=== PATIENT | female | born 1975 | race Caucasian/White ===

== ENCOUNTER 2017-02-28 13:40 | Emergency (ER) | payer OTHER ==
[2017-02-28] MEDS ORDERED: SODIUM CHLORIDE 0.9% 1,000 ML IV ONE (14:29)
[2017-02-28] MEDS ORDERED: HYDROmorphone 1 MG/ML 1 ML SYRINGE IVP STA ×2 (14:29→18:09)
--- NOTE | 2017-02-28 14:34 | ED ---
General Adult HPI - General Chief complaint: Recheck/Abnormal Lab/Rx Stated complaint: Med refill Time Seen by Provider: 02/28/17 13:57 Source: patient, RN notes reviewed Mode of arrival: ambulatory Limitations: no limitations - History of Present Illness Initial comments: Patient is a 41-year-old female since emergency room for evaluation. Patient states she is from [place]. Patient states she moved here month ago. Patient states she has not established a primary care provider yet. Patient states she has rheumatoid arthritis, diabetes and hypertension. Patient states she takes oxycodone for her rheumatoid arthritis. Patient states that she ran out of her pain medications. Patient states she's been trying to make her pain medications last throughout the past month. Patient states that she doesn't take her pain medications she drinks alcohol instead to help the pain. Patient states she ran out of pain medications yesterday. Patient also states today she 's been developing right upper quadrant pain. Patient states she has been worked up before and they told her that her liver was inflamed. Patient states she was nauseous earlier. Patient denies any nausea currently. Patient states she hasn't taken her blood pressure medications in 3 days. Patient states that a dull constant pain in her right upper quadrant. Patient denies pain or burning during urination, trouble urinating or blood in urine. Patient denies history of abdominal surgeries. Patient denies chest pain or shortness of breath. Patient denies fevers or chills. - Related Data Home Medications Medication Instructions Recorded Confirmed Halobetasol Propionate [Ultravate] 1 applic TOPICAL BID 02/28/17 02/28/17 INSULIN LISPRO (humaLOG) [HumaLOG] See Protocol SQ AC-TID 02/28/17 02/28/17 Insulin Glargine [Lantus] 50 unit SQ HS 02/28/17 02/28/17 Lisinopril 20 mg PO DAILY 02/28/17 02/28/17 Omeprazole 20 mg PO BID 02/28/17 02/28/17 Venlafaxine HCl ER [Effexor XR] 150 mg PO DAILY 02/28/17 02/28/17 clonazePAM [KlonoPIN] 0.5 mg PO TID PRN 02/28/17 02/28/17 metFORMIN HCL 1,000 mg PO BID 06/22/17 06/22/17 oxyCODONE HCL [Oxyir] 10 mg PO Q8H PRN 02/28/17 02/28/17 Previous Rx's Medication Instructions Recorded HYDROcodone/APAP 5-325MG [[facility] 1 tab PO Q6HR PRN #20 tab 02/28/17 5-325] Lisinopril 20 mg PO DAILY #60 tab 02/28/17 Allergies Allergy/AdvReac Type Severity Reaction Status Date / Time Penicillins Allergy Unknown Verified 02/28/17 14:37 Review of Systems ROS Statement: Those systems with pertinent positive or pertinent negative responses have been documented in the HPI. ROS Other: All systems not noted in ROS Statement are negative. Past Medical History Past Medical History: Diabetes Mellitus, Hypertension, Osteoarthritis (OA) History of Any Multi-Drug Resistant Organisms: None Reported Past Psychological History: Anxiety, Depression Smoking Status: Current some day smoker Past Alcohol Use History: Heavy Past Drug Use History: None Reported General Exam - General Exam Comments Initial Comments: Laying in exam room, slightly anxious. Limitations: no limitations General appearance: alert Head exam: Present: atraumatic, normocephalic, normal inspection Eye exam: Present: normal appearance ENT exam: Present: normal exam Neck exam: Present: normal inspection Respiratory exam: Present: normal lung sounds bilaterally. Absent: respiratory distress Cardiovascular Exam: Present: normal rhythm, tachycardia, normal heart sounds Extremities exam: Present: normal inspection Back exam: Present: normal inspection Neurological exam: Present: alert, oriented X3, CN II-XII intact, normal gait Psychiatric exam: Present: normal affect, normal mood Skin exam: Present: warm, dry, intact, normal color. Absent: rash Course Vital Signs 02/28/17 02/28/17 02/28/17 13:43 14:50 17:20 Temperature 98.2 F Pulse Rate 122 H 114 H 99 Respiratory 20 16 16 Rate Blood Pressure 158/92 157/92 147/60 O2 Sat by Pulse 98 96 96 Oximetry 02/28/17 18:23 Temperature 98.4 F Pulse Rate 93 Respiratory 16 Rate Blood Pressure 151/90 O2 Sat by Pulse 96 Oximetry Medical Decision Making - Medical Decision Making patient is a 41-year-old female presents emergency room for evaluation of all over body pain from rheumatoid arthritis and upper quadrant pain. Patient also requesting for medication refill. Patient requesting to have her blood pressure medications refilled and her pain medications. Discussed with patient and would not fill her oxycodone. Patient was sent home with [facility] and lisinopril. Patient states she has enough insulin. Patient states she will establish primary care provider to follow-up with. Patient's liver enzymes elevated. Ultrasound significant for fatty infiltrates liver. Results discussed with patient. Patient states she understands and knows discussed with her. Return parameters discussed. Case discussed Dr. Gusman. - Lab Data Result diagrams: 02/28/17 14:52 02/28/17 14:52 Lab Results 02/28/17 02/28/17 02/28/17 Range/Units 14:52 14:52 15:19 WBC 7.4 (3.8-10.6) k/uL RBC 4.60 (3.80-5.40) m/uL Hgb 15.5 (11.4-16.0) gm/dL Hct 43.4 (34.0-46.0) % MCV 94.5 (80.0-100.0) fL MCH 33.6 (25.0-35.0) pg MCHC 35.6 (31.0-37.0) g/dL RDW 14.5 (11.5-15.5) % Plt Count 234 (150-450) k/uL Neutrophils % 64 % Lymphocytes % 28 % Monocytes % 4 % Eosinophils % 1 % Basophils % 0 % Neutrophils # 4.8 (1.3-7.7) k/uL Lymphocytes # 2.1 (1.0-4.8) k/uL Monocytes # 0.3 (0-1.0) k/uL Eosinophils # 0.1 (0-0.7) k/uL Basophils # 0.0 (0-0.2) k/uL Sodium 137 (137-145) mmol/L Potassium 4.6 (3.5-5.1) mmol/L Chloride 103 (98-107) mmol/L Carbon Dioxide 21 L (22-30) mmol/L Anion Gap 13 mmol/L BUN 12 (7-17) mg/dL Creatinine 0.60 (0.52-1.04) mg/dL Est GFR (MDRD) Af Amer >60 (>60 ml/min/1.73 sqM) Est GFR (MDRD) Non-Af >60 (>60 ml/min/1.73 sqM) Glucose 200 H (74-99) mg/dL POC Glucose (mg/dL) 159 H (75-99) mg/dL POC Glu [place] ID Jody Metz Calcium 9.9 (8.4-10.2) mg/dL Total Bilirubin 0.7 (0.2-1.3) mg/dL AST 91 H (14-36) U/L ALT 109 H (9-52) U/L Alkaline Phosphatase 103 (38-126) U/L Total Protein 7.3 (6.3-8.2) g/dL Albumin 4.4 (3.5-5.0) g/dL Amylase 39 (30-110) U/L Lipase 66 (23-300) U/L Urine Color Urine Appearance (Clear) Urine pH (5.0-8.0) Ur Specific [place] (1.001-1.035) Urine Protein (Negative) Urine Glucose (UA) (Negative) Urine Ketones (Negative) Urine Blood (Negative) Urine Nitrite (Negative) Urine Bilirubin (Negative) Urine Urobilinogen (<2.0) mg/dL Ur Leukocyte Esterase (Negative) Urine HCG, Qual (Not Detectd) Serum Alcohol <10 mg/dL 02/28/17 02/28/17 Range/Units 15:39 15:39 WBC (3.8-10.6) k/uL RBC (3.80-5.40) m/uL Hgb (11.4-16.0) gm/dL Hct (34.0-46.0) % MCV (80.0-100.0) fL MCH (25.0-35.0) pg MCHC (31.0-37.0) g/dL RDW (11.5-15.5) % Plt Count (150-450) k/uL Neutrophils % % Lymphocytes % % Monocytes % % Eosinophils % % Basophils % % Neutrophils # (1.3-7.7) k/uL Lymphocytes # (1.0-4.8) k/uL Monocytes # (0-1.0) k/uL Eosinophils # (0-0.7) k/uL Basophils # (0-0.2) k/uL Sodium (137-145) mmol/L Potassium (3.5-5.1) mmol/L Chloride (98-107) mmol/L Carbon Dioxide (22-30) mmol/L Anion Gap mmol/L BUN (7-17) mg/dL Creatinine (0.52-1.04) mg/dL Est GFR (MDRD) Af Amer (>60 ml/min/1.73 sqM) Est GFR (MDRD) Non-Af (>60 ml/min/1.73 sqM) Glucose (74-99) mg/dL POC Glucose (mg/dL) (75-99) mg/dL POC Glu [place] ID Calcium (8.4-10.2) mg/dL Total Bilirubin (0.2-1.3) mg/dL AST (14-36) U/L ALT (9-52) U/L Alkaline Phosphatase (38-126) U/L Total Protein (6.3-8.2) g/dL Albumin (3.5-5.0) g/dL Amylase (30-110) U/L Lipase (23-300) U/L Urine Color Yellow Urine Appearance Clear (Clear) Urine pH 5.5 (5.0-8.0) Ur Specific [place] 1.020 (1.001-1.035) Urine Protein Negative (Negative) Urine Glucose (UA) 4+ H (Negative) Urine Ketones 1+ H (Negative) Urine Blood Negative (Negative) Urine Nitrite Negative (Negative) Urine Bilirubin Negative (Negative) Urine Urobilinogen <2.0 (<2.0) mg/dL Ur Leukocyte Esterase Negative (Negative) Urine HCG, Qual Not Detected (Not Detectd) Serum Alcohol mg/dL - Radiology Data Radiology results: report reviewed, image reviewed Disposition Clinical Impression: Encounter for medication refill, Abdominal pain, Myalgia Disposition: HOME SELF-CARE Condition: Good Instructions: Abdominal Pain (ED) Additional Instructions: Take blood pressure medications as directed. Take pain medications as needed. Please follow-up with primary care provider. If any new symptom arises or symptoms worsen, return to ER as soon as possible. Prescriptions: HYDROcodone/APAP 5-325MG [[facility] 5-325] 1 tab PO Q6HR PRN #20 tab PRN Reason: Pain Lisinopril 20 mg PO DAILY #60 tab Referrals: Jo Ann Díaz MD [STAFF PHYSICIAN] - 1-2 days Time of Disposition: 17:29
[2017-02-28 14:51] VITALS: RESP 16
[2017-02-28 15:07] LABS: Basophils % (A) 0 %; CH 32.9; CHCM 34.9; Eosinophils # (A) 0.1 k/uL (0-0.7); Eosinophils % (A) 1 %; HCT 43.4 % (34.0-46.0); HDW 2.78; HGB 15.5 gm/dL (11.4-16.0); Luc # (Auto) 0.13; Luc % (Auto) 2; Lymphocytes # (A) 2.1 k/uL (1.0-4.8); Lymphocytes % (A) 28 %; MCH 33.6 pg (25.0-35.0); MCHC 35.6 g/dL (31.0-37.0); MCV 94.5 fL (80.0-100.0); Mean Platelet Volume 7.2; Monocytes # (A) 0.3 k/uL (0-1.0); Monocytes % (A) 4 %; Neutrophils # (A) 4.8 k/uL (1.3-7.7); Neutrophils % (A) 64 %; RDW 14.5 % (11.5-15.5); WBC 7.4 k/uL (3.8-10.6); WBC (Perox) 7.53
[2017-02-28 15:17] LABS: ALT 109 U/L (9-52); AST 91 U/L (14-36); Alcohol <10 mg/dL; Alkaline Phosphatase 103 U/L (38-126); Amylase 39 U/L (30-110); Anion Gap 13 mmol/L; Blood Urea Nitrogen 12 mg/dL (7-17); Calcium 9.9 mg/dL (8.4-10.2); Carbon Dioxide 21 mmol/L (22-30); Chloride 103 mmol/L (98-107); Glucose 200 mg/dL (74-99); Non-African American GFR(MDRD) >60 (>60 ml/min/1.73 sqM); Potassium 4.6 mmol/L (3.5-5.1); Sodium 137 mmol/L (137-145); Total Bilirubin 0.7 mg/dL (0.2-1.3); Total Protein 7.3 g/dL (6.3-8.2)
[2017-02-28 15:20] LABS: Glucose,Whole Blood 159 mg/dL (75-99)
[2017-02-28 15:57] LABS: Appearance,Urine Clear (Clear); Bilirubin,Urine Negative (Negative); Glucose,Urine (UA) 4+ (Negative); Ketones,Urine 1+ (Negative); Leukocyte Esterase,Urine Negative (Negative); Nitrite,Urine Negative (Negative); PH, Urine 5.5 (5.0-8.0); Protein,Urine Negative (Negative); UA Billing (MACRO vs. MICRO) CHEM; Urobilinogen,Urine <2.0 mg/dL (<2.0)
[2017-02-28] MEDS ORDERED: KETOROLAC 30 MG/ML 1 ML VIAL IVP STA (16:36)
[2017-02-28] MEDS ORDERED: DIAZEPAM 5 MG/ML 2 ML SYRINGE IVP STA (16:37)
--- NOTE | 2017-02-28 17:18 | US ---
EXAMINATION TYPE: US abdomen limited DATE OF EXAM: 02/28/2017 COMPARISON: NONE CLINICAL HISTORY: Pain. elevated LFT's, RUQ pain EXAM MEASUREMENTS: Liver Length: 18.7 cm Gallbladder Wall: 0.2 cm CBD: 0.7 cm Right Kidney: 9.2 x 4.8 x 4.4 cm Pancreas: wnl Liver: difficult to penetrate and upper limits of normal Gallbladder: wnl Evidence for sonographic Lindsey's sign: no CBD: wnl Right Kidney: wnl IMPRESSION: Negative right upper quadrant abdominal sonogram. No gallstones or dilated ducts. There i s probably fatty infiltration of the liver.
[2017-02-28 18:27] VITALS: BP 151/90; PULSE 93; TEMP 98.4
== END 2017-02-28 18:23 | disposition home or self-care (01) ==
LOC: EC 13:40
DX: M79.1 Myalgia (principal); R10.11 Right upper quadrant pain; Z76.0 Encounter for issue of repeat prescription; K76.0 Fatty (change of) liver, not elsewhere classified; R74.8 Abnormal levels of other serum enzymes; R00.0 Tachycardia, unspecified; I10 Essential (primary) hypertension; E11.9 Type 2 diabetes mellitus without complications; F32.9 Major depressive disorder, single episode, unspecified; F41.9 Anxiety disorder, unspecified; F17.200 Nicotine dependence, unspecified, uncomplicated; Z79.4 Long term (current) use of insulin; Z79.52 Long term (current) use of systemic steroids; Z79.84 Long term (current) use of oral hypoglycemic drugs; Z79.899 Other long term (current) drug therapy; Z88.0 Allergy status to penicillin
CPT/HCPCS: 36415; 80053; 82150; 83690; 85025; 81003; 81025; 80320; 76705; 99283; 96374; 96375 ×2; 96376; 96361; J3360; J1885; J1170